=== PATIENT | male | born 1990 | race African-American/Black ===

== ENCOUNTER 2016-11-26 05:31 | Emergency (ER) | payer OTHER | END 2016-11-26 06:20 | disposition home or self-care (01) | LOC: CED 05:31 | DX: S29.011A Strain of muscle and tendon of front wall of thorax, initial encounter (principal); S13.9XXA Sprain of joints and ligaments of unspecified parts of neck, initial encounter; F20.9 Schizophrenia, unspecified; F17.210 Nicotine dependence, cigarettes, uncomplicated; Z79.2 Long term (current) use of antibiotics; V43.62XA Car passenger injured in collision with other type car in traffic accident, initial encounter | CPT/HCPCS: 99283 ==